=== PATIENT | female | born 1955 | race Caucasian/White ===

== ENCOUNTER → 2020-07-20 | Outpatient (CLI) | payer MEDICARE | LOC: GT 15:42 | PROVIDERS: ATTEND Internal Medicine | DX: R19.5 Other fecal abnormalities (principal) ==

== ENCOUNTER 2020-08-11 14:35 | Emergency (ER) | payer MEDICARE, MEDICAID ==
[2020-08-11] MEDS ORDERED: SODIUM CHLORIDE 0.9% (FLUSH) 10 ML SYG IV PRN (14:42)
[2020-08-11] MEDS ORDERED: ONDANSETRON INJ 4 MG/2 ML VIAL IV ONE (14:43)
[2020-08-11] MEDS ORDERED: SODIUM CHLORIDE 0.9% 1000ML 1,000 ML IVS ONE (14:43)
--- NOTE | 2020-08-11 14:46 | ED.PDOC ---
History of Present Illness - General Time Seen by Provider: 08/11/20 14:42 Source: patient, EMS, [facility] records - History of Present Illness Initial Comments: 65 yo female with PMH of CVA with persistent L-sided hemiplegia who is bib EMS from [facility] for cc of nausea and vomiting. Reports onset of symptoms 5 days ago with persistence. Patient states she has had 4 episodes of yellow- colored emesis today alone. She states that the nausea and vomiting is worsened by any attempted p.o. intake. She states she has not eaten or drank very much all week long. Additionally she reports constipation and states her last bowel movement was 5 days ago as well. She was given some milk of magnesia earlier today at the [facility] without any relief yet. She also reports constant moderate generalized abdominal discomfort. Denies any fevers, chills, chest pain, dyspnea, headaches, body aches, urinary symptoms. PCP is Dr. Sher in [place]. Pt reports prior abd surgeries of cholecystectomy (2016) and hernia repair (2018). The patient's daughter is present at bedside shortly after patient arrival and provides further history. She states that the patient was admitted to [facility] 1 month ago for abdominal discomfort and underwent ERCP and removal of stones in the bile duct by Dr. Broussard. Patient's daughter also states that she has had chronic nausea and poor appetite for the past 3 months with associated weight loss. Allergies/Adverse Reactions: Allergies Hydrogen Peroxide Allergy (Verified 08/11/20 15:06) Home Medications: Ambulatory Orders Acetaminophen [Tylenol] 1,000 mg PO Q8H PRN 08/11/20 Amlodipine Besylate [Norvasc] 5 mg PO DAILY 08/11/20 Ascorbic Acid [Vitamin C 500 mg] 1 tab PO DAILY 08/11/20 Aspirin [Aspirin EC] 81 mg PO DAILY 08/11/20 Atorvastatin Calcium [Lipitor] 40 mg PO DAILY 08/11/20 Carvedilol [Coreg] 3.125 mg PO BID 08/11/20 Clopidogrel Bisulfate [Clopidogrel] 75 mg PO DAILY 08/11/20 Cranberry (Vaccinium Macrocarp [Cranberry] 850 mg PO TID 08/11/20 Docusate Sodium [Colace Cap] 100 mg PO DAILY 08/11/20 Ibuprofen 600 mg PO Q6H PRN 08/11/20 Ipratropium-Albuterol [Ipratropium [place]/Albut] 1 chase INH Q6H PRN 08/11/20 Lisinopril 10 mg PO DAILY 08/11/20 Loperamide Cap [Imodium Cap] 2 mg PO Q4H PRN 08/11/20 Magnesium Hydroxide [Milk of Magnesia 400 mg/5Ml] 1 [place] PO Q6H PRN 08/11/20 Phenol (Antiseptic) [Chloraseptic] 2 spray MT Q8H PRN 08/11/20 Promethazine HCl 25 mg PO Q4H PRN 08/11/20 Zinc Sulfate 220 mg PO DAILY 08/11/20 Review of Systems - Review of Systems Review of Systems: 08/11/20 14:46 as per HPI All other Systems: Reviewed and Negative Family Medical History - Family History Mother Family History: No Known Physical Exam - Physical Exam General Appearance: Alert, Comfortable, No apparent distress, Obese Eye Exam: bilateral normal Ears, Nose, Throat: hearing grossly normal, normal ENT inspection, normal pharynx Neck: non-tender, full range of motion, supple, normal inspection Respiratory: lungs clear, normal breath sounds, no respiratory distress, no accessory muscle use Cardiovascular/Chest: normal peripheral pulses, regular rate, rhythm, no edema, no gallop, no JVD, no murmur Peripheral Pulses: radial,right: 2+, radial,left: 2+ Gastrointestinal/Abdominal: soft, no organomegaly, no pulsatile mass, abnormal bowel sounds - hyperactive, tenderness - moderate generalized ttp w/o guarding or rebound Back Exam: normal inspection, no CVA tenderness, no vertebral tenderness Extremity: no pedal edema, no calf tenderness, other - boot in place to LLE Neurologic: alert, normal mood/affect, oriented x 3, other - Left-sided hemiplegia noted Skin Exam: normal color, warm/dry Progress - Progress Progress: 08/11/20 14:48 Abdominal pain, nausea/vomiting -Consider acute gastroenteritis most likely. Consider also constipation, small bowel obstruction, viral infection, acute pancreatitis, acute appendicitis, diverticulitis, intra-abdominal infection, other -Patient stable -Obtain blood work, x-ray abdomen, chest x-ray, rapid Covid/flu testing, urinalysis -Place peripheral IV, 1 L normal saline bolus, Zofran 4 mg IV, reassess 08/11/20 17:53 -Remains stable, reports nausea is much improved in ED with Zofran and fluids. -X-ray imaging of the abdomen reveals nonspecific nonobstructive bowel gas pattern per my read. There is significant stool noted in the rectal vault. -Lab work revealed slightly elevated indirect bilirubin level but otherwise largely unremarkable. CT imaging of the abdomen and pelvis was obtained which revealed no emergent/acute processes. There was a moderate amount of stool noted in the rectal vault consistent with possible obstipation/fecal impaction. -Discussed all findings with patient and her daughter at bedside as well as diagnosis of constipation. We will give a dose of MiraLAX 17 g p.o. in the ED and advised to continue laxatives and stool softeners and enemas as needed at the [facility]. The daughter was concerned about the patient's chronic nausea which she states that she has had since April as well as some accompanying weight loss. I advised the patient and daughter to follow-up closely with the patient's primary care physician and gastrointestinal doctor for further evaluation and management of these issues as they appear chronic in nature. Patient may necessitate further outpatient studies such as endoscopy, gastric emptying study, etc. I advised the patient to eat frequent smaller meals throughout the day in order to avoid nausea and vomiting and to help promote good nutrition. -Discharge back to [facility] in good condition, return warnings discussed Marky Stock MD Billing #[id number] 08/11/20 14:42 Sodium Chloride 0.9% (Flush) [Saline Flush Syringe] 10 ml IV PRN PRN Abdomen 1 View [RAD] Stat URINALYSIS Stat 08/11/20 15:51 Hold Metformin x 48Hrs [id number] Laboratory Results - last 24 hr 08/11/20 08/11/20 14:50 14:50 WBC 9.4 RBC 4.58 Hgb 13.8 Hct 41.2 MCV 89.9 MCH 30.2 MCHC 33.6 RDW 16.1 H Plt Count 362 MPV 7.6 Absolute Neuts (auto) 7.30 H Absolute Lymphs (auto) 1.10 Absolute Monos (auto) 0.90 H Absolute Eos (auto) 0.00 Absolute Basos (auto) 0.00 Neutrophils % 78.0 Lymphocytes % 11.9 L Monocytes % 9.1 H Eosinophils % 0.5 L Basophils % 0.5 Sodium 132 L Potassium 3.2 L Chloride 87 L Carbon Dioxide 29 Anion Gap 19.2 H BUN 19 H Creatinine 0.47 L BUN/Creatinine Ratio 40.4 H Random Glucose 106 H Serum Osmolality 267.2 L Calcium 9.9 Total Bilirubin 1.3 H Direct Bilirubin 0.4 H Indirect Bilirubin 0.9 H AST 21 ALT 19 Alkaline Phosphatase 97 Serum Total Protein 7.0 Albumin 3.6 Amylase 27 L Lipase 25 - EKG/XRAY/CT XRAY: chest - no acute processes per my read Departure - Departure Clinical Impression: Chronic nausea, Weight loss Constipation Qualifiers: Constipation type: unspecified constipation type Qualified Code(s): K59.00 - Constipation, unspecified Time of Disposition: 17:50 Disposition: Discharge to SNF Condition: Good Instructions: Constipation, Adult (DC), Nausea and Vomiting, Adult (DC) Diet: resume usual diet Activity: increase activity as tolerated Referrals: WESTON SHER [Primary Care Provider] - 1-2 Weeks Home Medications: Ambulatory Orders Acetaminophen [Tylenol] 1,000 mg PO Q8H PRN 08/11/20 Amlodipine Besylate [Norvasc] 5 mg PO DAILY 08/11/20 Ascorbic Acid [Vitamin C 500 mg] 1 tab PO DAILY 08/11/20 Aspirin [Aspirin EC] 81 mg PO DAILY 08/11/20 Atorvastatin Calcium [Lipitor] 40 mg PO DAILY 08/11/20 Carvedilol [Coreg] 3.125 mg PO BID 08/11/20 Clopidogrel Bisulfate [Clopidogrel] 75 mg PO DAILY 08/11/20 Cranberry (Vaccinium Macrocarp [Cranberry] 850 mg PO TID 08/11/20 Docusate Sodium [Colace Cap] 100 mg PO DAILY 08/11/20 Ibuprofen 600 mg PO Q6H PRN 08/11/20 Ipratropium-Albuterol [Ipratropium [place]/Albut] 1 chase INH Q6H PRN 08/11/20 Lisinopril 10 mg PO DAILY 08/11/20 Loperamide Cap [Imodium Cap] 2 mg PO Q4H PRN 08/11/20 Magnesium Hydroxide [Milk of Magnesia 400 mg/5Ml] 1 [place] PO Q6H PRN 08/11/20 Phenol (Antiseptic) [Chloraseptic] 2 spray MT Q8H PRN 08/11/20 Promethazine HCl 25 mg PO Q4H PRN 08/11/20 Zinc Sulfate 220 mg PO DAILY 08/11/20 Additional Instructions: Remain well-hydrated and gradually advance her diet and activity level as tolerated. For your constipation, it is recommended that you take an enema 1-2 times daily along with laxatives as needed until having at least 1-2 soft bowel movements per day and constipation is relieved. Afterwards you may need to be on chronic stool softeners and laxatives in order to prevent constipation. You should also eat a high-fiber diet and remain well-hydrated to prevent constipation as well. For your chronic nausea and weight loss, these need to be investigated further by your primary care physician and gastrointestinal doctor. You may need further outpatient labs and tests such as a gastric emptying study, endoscopy, etc. Return to the ED if you develop worsening of symptoms or other concerning symptoms such as worsening abdominal pain, intractable nausea and vomiting, bloody vomiting or diarrhea, abdominal pain with fevers, etc.
--- NOTE | 2020-08-11 15:27 | RAD ---
EXAM DESCRIPTION: Chest,1 View CLINICAL HISTORY: 65 years Female nausea/vomiting COMPARISON: None TECHNIQUE: AP view of the chest was obtained. FINDINGS: Cardiac size is within normal limits. Central vessels are not increased. No infiltrates or effusions seen. No consolidation. No pneumothorax. IMPRESSION: No active disease. Electronically signed by: Anne Sandhu MD 08/11/2020 3:26 PM [facility]
--- NOTE | 2020-08-11 17:17 | CT ---
EXAM DESCRIPTION: Abdomen/Pelvis w/Contrast CLINICAL HISTORY:65 years Female, abdominal pain, n/v, elevated bilirubin Comparison: None TECHNIQUE: Contiguous axial CT images of the abdomen and pelvis were obtained. Sagittal and coronal reformats were reviewed. This exam was performed according to our departmental dose-optimization program, which includes automated exposure control, adjustment of the mA and/or kV according to patient size and/or use of iterative reconstruction technique. FINDINGS: Lung bases: Clear. Liver:Unremarkable. No focal liver lesion. Gallbladder: Pneumobilia in the right and left hepatic lobes as well as the common bile duct. The gallbladder surgically removed. Spleen:Unremarkable Pancreas: Pancreas is unremarkable. Adrenal glands:Within normal limits. Kidneys/ureters: Nonobstructive calculi in the superior right renal pole. No hydronephrosis or nephrolithiasis on the left. Stomach/small bowel/colon: Stomach is unremarkable. Postsurgical changes in the small bowel in the lower abdomen. No obstruction. No abdominal or pelvic fluid collections. A few scattered colonic diverticula. No evidence of diverticulitis. Appendix: No evidence of appendicitis. Peritoneum: No free fluid. Vascular structures: Diffuse atherosclerotic calcifications. Lymph nodes: No abnormal lymph nodes. Bladder:Unremarkable. Pelvic organs: No acute abnormality Bones: No acute osseous abnormality. Multilevel degenerative changes in the spine and degenerative changes in both hips, left greater the right. Soft tissues: Unremarkable.. IMPRESSION: Pneumobilia, correlate for history of recent endoscopy. Cholecystectomy. Postsurgical changes in the small bowel. No obstruction or abdominal fluid collections. Tiny nonobstructive right renal calculus. Diffuse atherosclerotic vascular disease. Electronically signed by: Michelet Rincon DO 08/11/2020 5:15 PM [facility]
[2020-08-11] MEDS ORDERED: POLYETHYLENE GLYCOL 3350 17 GM PCKT PO ONE (17:49)
[2020-08-11 18:26] VITALS: BP 121/76; TEMP 98.2; O2SAT 91
== END 2020-08-11 18:05 ==
LOC: ER 14:35
DX: R11.2 Nausea with vomiting, unspecified (principal); K59.00 Constipation, unspecified; R63.4 Abnormal weight loss; Z20.822 Contact with and (suspected) exposure to COVID-19; Z79.82 Long term (current) use of aspirin; Z79.899 Other long term (current) drug therapy; Z87.19 Personal history of other diseases of the digestive system; Z98.890 Other specified postprocedural states; Z90.49 Acquired absence of other specified parts of digestive tract
CPT/HCPCS: 36415; 71045; 74018; 74177; 80048; 80076; 82150; 83690; 85025; 87502; 87635; J2405; J7030